=== PATIENT | female | born 1995 | race Caucasian/White ===

== ENCOUNTER 2016-12-29 08:01 | Outpatient (RCR) | payer MEDICAID, OTHER ==
[~2016-12-29 08:01] MED LIST: BACT800T; BACTROBAN; No Historical Meds
== END 2017-01-06 ==
LOC: M OT 08:01
PROVIDERS: ATTEND Physician Assistant
DX: S06.0X0D Concussion without loss of consciousness, subsequent encounter (principal); H53.9 Unspecified visual disturbance; X58.XXXD Exposure to other specified factors, subsequent encounter; Y93.9 Activity, unspecified; Y92.9 Unspecified place or not applicable; Y99.8 Other external cause status

== ENCOUNTER → 2021-06-16 | Outpatient (REF) | payer OTHER | LOC: M SFHCWAGY 09:55 | PROVIDERS: ATTEND Specialist | DX: Z36.89 Encounter for other specified antenatal screening (principal) ==

== ENCOUNTER → 2022-01-20 | Outpatient (REF) | payer OTHER ==
[~2022-01-20] MED LIST changes: +ASPI81CH33 PO; +PRENTAB9 PO
== END ==
LOC: M SFHCWAGY 13:23
PROVIDERS: ATTEND Obstetrics & Gynecology
DX: Z01.419 Encounter for gynecological examination (general) (routine) without abnormal findings (principal)